=== PATIENT | male | born 1960 | race African-American/Black ===

== ENCOUNTER 2021-10-20 05:39 | Inpatient (IN) ==
[2021-10-17 11:12] LABS: Basophils # 0.1 10*3/uL (0.0-0.2); Basophils % 1.5 % (0.0-0.8); Eosinophils # 0.3 10*3/uL (0.0-0.87); Eosinophils % 4.2 % (0.00-10.9); Hematocrit 26.8 VOL% (42.0-52.0); Hemoglobin 9.2 GM/DL (14.0-18.0); Immature Granulocytes % 0.3 %; Immature Granulocytes Absolute 0.02 #; Lymphocytes # 1.3 10*3/uL (1.4-4.0); Lymphocytes % 20.7 % (21.2-54.2); Mean Corpuscular HGB Conc 34.3 GM/DL (32-36); Mean Corpuscular Volume 90.8 FL (87-102); Mean Platelet Volume 10.4 FL (9.6-12.0); Monocytes # 0.8 10*3/uL (0.11-0.8); Monocytes % 12.8 % (1.7-12.7); Neutrophils % 60.5 % (38.7-73.9); Platelet Count 224 T/CUMM (130-400); Red Blood Count 2.95 MC/CUMM (3.8-5.5); Red Cell Distribution Width 17.9 % (9.3-17.3); White Blood Count 6.2 T/CUMM (4-12)
[2021-10-17 11:35] LABS: Calcium 8.2 MG/DL (8.5-10.1)
[2021-10-20] MEDS ORDERED: propofoL 200 MG/20 ML VIAL IV ONE (05:52)
[2021-10-20] MEDS ORDERED: LIDOCAINE 2% 5 ML VIAL ONE (05:52)
[2021-10-20] MEDS ORDERED: fentaNYL 100 MCG/2 ML VIAL ONE ×2 (05:52→06:52)
[2021-10-20] MEDS ORDERED: ROCURONIUM 50 MG/5 ML VIAL IV ONE (05:52)
[2021-10-20] MEDS ORDERED: MIDAZOLAM 2 MG/2 ML VIAL ONE ×2 (05:53→06:52)
[2021-10-20] MEDS ORDERED: cefOXitin 1,000 MG in SODIUM CHLORIDE 0.9% 100 ML IV ONE (06:00)
[2021-10-20] MEDS ORDERED: LACTATED RINGERS 1,000 ML IV SCH (06:00)
[2021-10-20] MEDS ORDERED: BUPIVACAINE MPF 0.25% 30 ML VIAL ONE (06:28)
[2021-10-20] MEDS ORDERED: DEXAMETHASONE 4 MG/1 ML VIAL ONE (06:28)
[2021-10-20] MEDS ORDERED: ePHEDrine 50 MG/ML VIAL ONE (07:53)
[2021-10-20] MEDS ORDERED: INDOCYANINE GREEN 25 MG VIAL IV ONE (08:04)
[2021-10-20] MEDS ORDERED: PHENYLEPHRINE 1 MG/10 ML SYRINGE IV ONE (08:12)
[2021-10-20] MEDS ORDERED: LACTATED RINGERS 1,000 ML IV ONE ×2 (08:23→09:25)
[2021-10-20] MEDS ORDERED: PHENYLEPHRINE DRIP 20 MG/250 ML PREMIX IV ONE (08:25)
[2021-10-20] MEDS ORDERED: TISSUE ADHESIVE 1 EACH APPLICATOR TOP ONE (08:34)
[2021-10-20] MEDS ORDERED: SEVOFLURANE 1 UNIT/15 MINUTE INH ONE (08:58)
[2021-10-20] MEDS ORDERED: GLYCOPYRROLATE 0.4 MG/2 ML VIAL ONE (08:58)
[2021-10-20] MEDS ORDERED: NEOSTIGMINE 10 MG/10 ML VIAL ONE (08:59)
[2021-10-20] MEDS ORDERED: diphenhydrAMINE 50 MG/1 ML VIAL ONE (09:25)
[2021-10-20] MEDS ORDERED: ONDANSETRON 4 MG/2 ML VIAL IV PRN ×2 (10:06→10:28)
[2021-10-20] MEDS ORDERED: HYDROmorphone 1 MG/1 ML SYRINGE IV PRN ×3 (10:06→10:28)
[2021-10-20] MEDS ORDERED: ACETAMINOPHEN 325 MG TABLET PO PRN (10:28)
[2021-10-20] MEDS ORDERED: KETOROLAC 15 MG/1 ML VIAL IV PRN (10:28)
[2021-10-20] MEDS ORDERED: ALBUTEROL/IPRATROPIUM 3 ML NEB RESP TX PRN (10:28)
[2021-10-20] MEDS: LACTATED RINGERS 1,000 ML IV SCH ×2 (10:46→17:34)
[2021-10-20] MEDS: GABAPENTIN 100 MG CAPSULE PO SCH ×2 (14:48→20:25)
[2021-10-20] MEDS: CYPROHEPTADINE 4 MG TABLET PO SCH ×2 (14:48→20:25)
[2021-10-20] MEDS: TAMSULOSIN 0.4 MG CAPSULE PO SCH (17:11)
[2021-10-20] MEDS: traZODone 50 MG TABLET PO SCH (20:25)
[2021-10-20] MEDS: CARBOXYMETHYLCELLULOSE 1% OPH SOLN BOTH EYES SCH (20:30)
[2021-10-21] MEDS: LACTATED RINGERS 1,000 ML IV SCH ×4 (01:53→20:54)
[2021-10-21] MEDS: ENOXAPARIN 40 MG/0.4 ML SYRINGE SUBCUT SCH (04:37)
[2021-10-21 05:51] LABS: Basophils # 0.1 10*3/uL (0.0-0.2); Basophils % 0.7 % (0.0-0.8); Eosinophils # 0.2 10*3/uL (0.0-0.87); Eosinophils % 2.2 % (0.00-10.9); Hematocrit 24.1 VOL% (42.0-52.0); Hemoglobin 8.1 GM/DL (14.0-18.0); Immature Granulocytes % 0.4 %; Immature Granulocytes Absolute 0.03 #; Lymphocytes % 13.1 % (21.2-54.2); Mean Corpuscular HGB Conc 33.6 GM/DL (32-36); Mean Corpuscular Volume 92.3 FL (87-102); Mean Platelet Volume 10.7 FL (9.6-12.0); Monocytes # 0.9 10*3/uL (0.11-0.8); Monocytes % 11.2 % (1.7-12.7); Neutrophils % 72.4 % (38.7-73.9); Platelet Count 183 T/CUMM (130-400); Red Blood Count 2.61 MC/CUMM (3.8-5.5); Red Cell Distribution Width 18.3 % (9.3-17.3); White Blood Count 7.6 T/CUMM (4-12)
[2021-10-21 06:04] LABS: Calcium 7.3 MG/DL (8.5-10.1); Osmolality,Calculated 275.5 MOS/KG (273-304)
[2021-10-21] MEDS ORDERED: SKIN HEALING OINT (AQUAPHOR) 50 GM TUBE TOP PRN (08:24)
[2021-10-21] MEDS: GABAPENTIN 100 MG CAPSULE PO SCH ×3 (11:26→20:54)
[2021-10-21] MEDS: PANTOPRAZOLE 40 MG TABLET PO SCH (11:27)
[2021-10-21] MEDS: SERTRALINE 100 MG TABLET PO SCH (11:27)
[2021-10-21] MEDS: CYPROHEPTADINE 4 MG TABLET PO SCH ×3 (11:27→20:54)
[2021-10-21] MEDS: diphenhydrAMINE CAP 25 MG CAPSULE PO PRN (11:27)
[2021-10-21] MEDS: FAMOTIDINE 20 MG TABLET PO SCH (11:27)
[2021-10-21] MEDS: TAMSULOSIN 0.4 MG CAPSULE PO SCH (17:04)
[2021-10-21] MEDS: traZODone 50 MG TABLET PO SCH (20:54)
[2021-10-21] MEDS: CARBOXYMETHYLCELLULOSE 1% OPH SOLN BOTH EYES SCH (20:55)
[2021-10-22] MEDS: diphenhydrAMINE CAP 25 MG CAPSULE PO PRN ×3 (00:09→21:46)
[2021-10-22] MEDS: LACTATED RINGERS 1,000 ML IV SCH ×3 (04:04→22:57)
[2021-10-22 05:18] LABS: Basophils % 0.3 % (0.0-0.8); Eosinophils # 0.1 10*3/uL (0.0-0.87); Eosinophils % 2.1 % (0.00-10.9); Hematocrit 24.6 VOL% (42.0-52.0); Hemoglobin 8.2 GM/DL (14.0-18.0); Immature Granulocytes % 0.2 %; Immature Granulocytes Absolute 0.01 #; Lymphocytes # 0.9 10*3/uL (1.4-4.0); Lymphocytes % 14.7 % (21.2-54.2); Mean Corpuscular HGB Conc 33.3 GM/DL (32-36); Mean Corpuscular Volume 93.5 FL (87-102); Mean Platelet Volume 10.7 FL (9.6-12.0); Monocytes # 0.6 10*3/uL (0.11-0.8); Monocytes % 9.4 % (1.7-12.7); Neutrophils % 73.3 % (38.7-73.9); Platelet Count 175 T/CUMM (130-400); Red Blood Count 2.63 MC/CUMM (3.8-5.5); Red Cell Distribution Width 18.2 % (9.3-17.3); White Blood Count 6.3 T/CUMM (4-12)
[2021-10-22] MEDS: ENOXAPARIN 40 MG/0.4 ML SYRINGE SUBCUT SCH (05:19)
[2021-10-22 05:41] LABS: Calcium 7.8 MG/DL (8.5-10.1); Osmolality,Calculated 271.7 MOS/KG (273-304); Potassium 3.9 MMOL/L (3.5-5.1)
[2021-10-22 05:50] LABS: Band Neutrophils 1 % (0-10); Hypochromia Slight; Lymphocytes 8 % (20-55); Total Cells Counted 100
[2021-10-22 05:51] LABS: Platelet Estimate Normal
[2021-10-22] MEDS: FAMOTIDINE 20 MG TABLET PO SCH (08:28)
[2021-10-22] MEDS: PANTOPRAZOLE 40 MG TABLET PO SCH (08:28)
[2021-10-22] MEDS: CYPROHEPTADINE 4 MG TABLET PO SCH ×3 (08:28→20:55)
[2021-10-22] MEDS: GABAPENTIN 100 MG CAPSULE PO SCH ×3 (08:28→20:55)
[2021-10-22] MEDS: SERTRALINE 100 MG TABLET PO SCH (08:28)
[2021-10-22] MEDS: TAMSULOSIN 0.4 MG CAPSULE PO SCH (17:14)
[2021-10-22] MEDS: traZODone 50 MG TABLET PO SCH (20:55)
[2021-10-22] MEDS: CARBOXYMETHYLCELLULOSE 1% OPH SOLN BOTH EYES SCH (20:56)
[2021-10-23] MEDS: diphenhydrAMINE CAP 25 MG CAPSULE PO PRN ×2 (03:35→17:00)
[2021-10-23] MEDS: LACTATED RINGERS 1,000 ML IV SCH ×2 (04:41→14:11)
[2021-10-23] MEDS: ENOXAPARIN 40 MG/0.4 ML SYRINGE SUBCUT SCH (04:41)
[2021-10-23] MEDS: PANTOPRAZOLE 40 MG TABLET PO SCH (08:53)
[2021-10-23] MEDS: GABAPENTIN 100 MG CAPSULE PO SCH ×3 (08:53→20:42)
[2021-10-23] MEDS: CYPROHEPTADINE 4 MG TABLET PO SCH ×3 (08:53→20:42)
[2021-10-23] MEDS: FAMOTIDINE 20 MG TABLET PO SCH (08:53)
[2021-10-23] MEDS: SERTRALINE 100 MG TABLET PO SCH (08:53)
[2021-10-23] MEDS: TAMSULOSIN 0.4 MG CAPSULE PO SCH (17:00)
[2021-10-23] MEDS: traZODone 50 MG TABLET PO SCH (20:42)
[2021-10-23] MEDS: CARBOXYMETHYLCELLULOSE 1% OPH SOLN BOTH EYES SCH (20:43)
[2021-10-23] MEDS ORDERED: HALOPERIDOL 5 MG/ML AMP IM ONE (23:47)
[2021-10-24] MEDS: LACTATED RINGERS 1,000 ML IV SCH ×2 (04:37→14:12)
[2021-10-24] MEDS: ENOXAPARIN 40 MG/0.4 ML SYRINGE SUBCUT SCH (04:37)
[2021-10-24 08:05] LABS: Basophils % 0.4 % (0.0-0.8); Eosinophils # 0.3 10*3/uL (0.0-0.87); Eosinophils % 4.6 % (0.00-10.9); Hematocrit 21.6 VOL% (42.0-52.0); Hemoglobin 7.4 GM/DL (14.0-18.0); Immature Granulocytes % 0.3 %; Immature Granulocytes Absolute 0.02 #; Lymphocytes % 15.1 % (21.2-54.2); Mean Corpuscular HGB Conc 34.3 GM/DL (32-36); Mean Corpuscular Volume 91.5 FL (87-102); Mean Platelet Volume 10.1 FL (9.6-12.0); Monocytes # 0.8 10*3/uL (0.11-0.8); Monocytes % 12.5 % (1.7-12.7); Neutrophils % 67.1 % (38.7-73.9); Platelet Count 180 T/CUMM (130-400); Red Blood Count 2.36 MC/CUMM (3.8-5.5); Red Cell Distribution Width 17.9 % (9.3-17.3); White Blood Count 6.7 T/CUMM (4-12)
[2021-10-24 08:25] LABS: Eosinophils 4 % (0-10); Hypochromia 1+; Lymphocytes 7 % (20-55); Microcytosis 1+; Platelet Estimate Adequate; Total Cells Counted 100
[2021-10-24] MEDS ORDERED: LORazepam 1 MG TABLET PO PRN (10:54)
[2021-10-24] MEDS ORDERED: LACTATED RINGERS 1,000 ML IV SCH (11:30)
[2021-10-24] MEDS ORDERED: LIDOCAINE 2% 5 ML VIAL ONE (11:42)
[2021-10-24] MEDS ORDERED: propofoL 200 MG/20 ML VIAL IV ONE (11:42)
[2021-10-24] MEDS: CYPROHEPTADINE 4 MG TABLET PO SCH (12:39)
[2021-10-24] MEDS: FAMOTIDINE 20 MG TABLET PO SCH (12:39)
[2021-10-24] MEDS: PANTOPRAZOLE 40 MG TABLET PO SCH (12:39)
[2021-10-24] MEDS: SERTRALINE 100 MG TABLET PO SCH (12:39)
[2021-10-24] MEDS: GABAPENTIN 100 MG CAPSULE PO SCH ×2 (12:39→14:17)
[2021-10-24 16:02] VITALS: BP 106/64
[2021-10-24] MEDS: TAMSULOSIN 0.4 MG CAPSULE PO SCH (17:14)
== END 2021-10-24 18:20 | disposition home or self-care (01) | DRG 328 ==
LOC: N.OR 05:39 → N.SDSINP 05:39 → N.3E 10:49
PROVIDERS: ADMIT Surgery; ATTEND Surgery